=== PATIENT | male | born 1990 ===

== ENCOUNTER → 2024-04-03 | Outpatient (CLI) | payer SELFPAY ==
[2024-04-14 13:08] LABS: Cotinine Screen Blood <1.0 ng/mL (.); Nicotine Blood <1.0 ng/mL (.)
== END | disposition home or self-care (01) ==
LOC: LABSPEC 12:48
PROVIDERS: Visit Provider Registered Nurse
DX: Z00.00 Encounter for general adult medical examination without abnormal findings (principal)
CPT/HCPCS: 80323; G0480